=== PATIENT | male | born 1975 | race Caucasian/White ===

== ENCOUNTER 2023-12-13 01:15 | Emergency (ER) | payer SELFPAY ==
[~2023-12-13] VITALS: Ht 165.1 cm; Wt 86.2 kg
[2023-12-13 01:24] VITALS: BP 138/74; PULSE 94; RESP 16; TEMP 99.1; O2SAT 99
[2023-12-13 01:49] VITALS: BP 138/74; PULSE 94; RESP 16; TEMP 99.1; O2SAT 99
== END 2023-12-13 01:48 ==
LOC: MED 01:15
DX: Z02.89 Encounter for other administrative examinations (principal); E11.9 Type 2 diabetes mellitus without complications; V89.2XXA Person injured in unspecified motor-vehicle accident, traffic, initial encounter; Y93.89 Activity, other specified; Y92.410 Unspecified street and highway as the place of occurrence of the external cause; Y99.8 Other external cause status
CPT/HCPCS: 82948; 99283